=== PATIENT | male | born 2000 | race Caucasian/White ===

== ENCOUNTER 2021-01-15 18:55 | Emergency (ER) | payer OTHER ==
[~2021-01-15] VITALS: Ht 165.1 cm; Wt 72.6 kg
--- NOTE | 2021-01-15 19:05 | NUR ---
Dr. Holman at bedside for MSE.
[2021-01-15] MEDS ORDERED: FLUORESCEIN SODIUM 1 MG STRIP ONE (19:20)
[2021-01-15] MEDS ORDERED: TETRACAINE HCL 0.5% OPHT DROP 2 ML BOTTLE ONE (19:21)
[2021-01-15] MEDS ORDERED: TETRACAINE HCL 0.5% OPHT DROP 2 ML BOTTLE OP ONE (19:45)
[2021-01-15] MEDS ORDERED: CIPROFLOXACIN 0.3% OPHT DROP 2.5 ML BOTTLE OP ONE (19:45)
[2021-01-15] MEDS ORDERED: FLUORESCEIN SODIUM 1 MG STRIP OP ONE (19:45)
--- NOTE | 2021-01-15 19:47 | NUR ---
Patient discharged to home in stable condition. Written and verbal after care instructions given. Patient verbalizes understanding of instructions. Stressed follow up or return to ER for worsening s/s. Patient out of ER with steady gait, no acute signs of distress, VSS, all belongings taken, to be driven home via private vehicle by mother.
[2021-01-15 19:48] VITALS: BP 148/82
== END 2021-01-15 19:49 | disposition home or self-care (01) ==
LOC: ER 19:02
DX: S05.02XA Injury of conjunctiva and corneal abrasion without foreign body, left eye, initial encounter (principal); W52.XXXA Crushed, pushed or stepped on by crowd or human stampede, initial encounter; Y93.11 Activity, swimming; Y92.34 Swimming pool (public) as the place of occurrence of the external cause; Y99.8 Other external cause status; H10.9 Unspecified conjunctivitis; B96.89 Other specified bacterial agents as the cause of diseases classified elsewhere; F17.210 Nicotine dependence, cigarettes, uncomplicated
CPT/HCPCS: A4663